=== PATIENT | female | born 2000 | race Caucasian/White ===

== ENCOUNTER 2021-03-24 11:08 | Inpatient (IN) ==
[2021-03-24] MEDS ORDERED: ONDANSETRON 4 MG TAB.RAPDIS PO PRN (11:20)
[2021-03-24] MEDS ORDERED: RINGER'S SOLUTION,LACTATED 1,000 ML IV ONE (11:20)
[2021-03-24] MEDS ORDERED: OXYTOCIN/0.9 % SODIUM CHLORIDE 30 UNITS/500 ML BAG IV ONE (11:20)
[2021-03-24] MEDS ORDERED: PENICILLIN G POTASSIUM 5 MILLIONUNT in DEXTROSE 5 % IN WATER 100 ML IV ONE ×2 (11:24)
[2021-03-24 11:46] LABS: Mean Cell Volume 87.4 fl (78-100); Mean Corpuscular Hemoglobin 27.3 pg (27-31); Mean Corpuscular Hgb Conc 31.3 g/dl (32-36); Mean Platelet Volume 11.2 fl (8-12.5); Platelet Count 244 K/mm3 (150-450); Red Blood Count 3.66 M/mm3 (4.2-5.4); White Blood Count 12.7 K/mm3 (4.0-10.5)
[2021-03-24 12:01] LABS: Albumin * 2.4 gm/dl (3.4-5.0); Anion Gap 16.2 mmol/L (6.8-13.8); BUN/Creatinine Ratio 13.8 (9.0-21.6); Bilirubin, Total 0.5 mg/dL (0.0-1.1); Ca. Corrected For Albumin 9.9 mg/dL (8.4-10.2); Calcium * 8.9 mg/dL (7.9-10.9); Carbon Dioxide 22.9 mmol/L (24-32.6); Potassium 4.1 mmol/L (3.4-4.6); Total Protein 6.7 gm/dL (6.2-8.2)
[2021-03-24 12:04] LABS: Random Urine Total Protein 39.2 mg/dL (0-12)
--- NOTE | 2021-03-24 12:31 | HP ---
Chief Complaint - Chief Complaint Date of Service: 03/24/21 Time of Service: 12:21 Chief Complaint: IOL for GHTN History of Present Illness: 20 yo at 30w0d admitted to L&D for IOL for GHTN. Pt. had elevated BPs (142/78, 130/91) at office appt today. Will obtain labs to rule out preeclampsia. Denies VANCE, visual changes, epigastric pain. This complicated by anemia, hypothyroidism, COVID-19 (10/26/20), and now GHTN. Rh positive Rubella immune GBS positive on 1st trimester urine. Medical History (Last Reviewed 03/24/21 @ 12:25 by Mike Ybarra DO) Anemia affecting (Acute) Onset Date: 01/07/21 Anxiety no tx History of palpitations anxiety Hemorrhoids History of COVID-19 Onset Date: ~10/26/20 Hypoglycemia Surgical History: Surgical History (Last Reviewed 03/24/21 @ 12:25 by Mike Ybarra DO) Arm fracture, left Onset Date: Unknown Broke in kindergarten, Surg repaired. Family History: Family History (Last Reviewed 03/24/21 @ 12:25 by Mike Ybarra DO) Father Diabetes Mother Crohn disease Hx of cholecystectomy Hypothyroidism Grandmother Diabetes Cervical cancer Grandfather CHF (congestive heart failure) Myocardial infarction Social History: (Last Reviewed 03/24/21 @ 12:25 by Mike Ybarra DO) Social History: adopted: No foster care: No Marital status: lives independently: Yes household members: spouse current occupational status: employed current occupation: [employer] Highest level of school completed/degree received: high school graduate Sexually Active: Yes Service: No Tobacco: Smoking Status: Never smoker Alcohol: alcohol intake: current alcohol intake frequency: holiday/special occasion details: none since +UPT Substance Use: substance use type: does not use Dietary Habits: caffeine: No Pets: pets and animals: cat(s) Exercise: Physical activity type: none frequency: does not exercise Review Of Systems (GEN) - Review of Systems Generalized/Overall Review: Present: No Symptoms Reported EENTM: Present: No Symptoms Reported Respiratory: Present: No Symptoms Reported Cardiac: Present: No Symptoms Reported Abdominal: Present: No Symptoms Reported Genitourinary: Present: No Symptoms Reported Musculoskeletal: Present: No Symptoms Reported Neurological: Present: No Symptoms Reported Skin: Present: No Symptoms Reported Endocrine: Present: No Symptoms Reported Immunizations: IMMUNIZATION HX Immunizations Up to Date Yes History of Influenza Vaccine More Information Required Hx Pneumococcal Vaccination More Information Required Allergies/Adverse Reactions: Allergies Allergy/AdvReac Type Severity Reaction Status Date / Time No Known Allergies Allergy Verified 03/24/21 10:51 Home Medications: HOME MEDICATIONS prenat.vits,rodriguez,[id number] 1 tab PO DAILY 08/20/20 [Last Taken Unknown] ferrous sulfate 325 mg (65 mg iron) tablet 325 mg PO DAILY #30 tab 01/07/21 [Last Taken Unknown] Exam - Exam Vital Signs: Vital Signs - Last Taken Temp 37.4 C 03/24/21 11:45 Pulse 113 H 03/24/21 11:45 Resp 18 03/24/21 11:45 BP 134/89 03/24/21 11:45 Pulse Ox 98 03/24/21 11:45 Constitutional: Present: Alert, Oriented x3, Cooperative, No distress ENT Exam: Present: hearing grossly normal Neck: Present: non-tender. Absent: thyromegaly Breasts: Present: Exam deferred Respiratory: Present: lungs clear, no respiratory distress Cardiovascular/Chest: Present: normal peripheral pulses, regular rate, rhythm Abdomen: Present: soft, nontender, no rebound tenderness, other - gravid /Rectal: Present: Other - Cervix 1/75/-1 Extremity: Present: no calf tenderness, lower extremity edema - 1+, DTR 3/4, no clonus Skin Exam: Present: normal color, warm/dry, no cyanosis Lymphatic: Present: no adenopathy Neurologic: Present: alert, normal mood/affect, oriented x 3 Appearance: Present: appropriate appearance, appropriate insight Eye contact: Present: cooperative, good eye contact Thoughts: Present: normal thought pattern, normal mood /affect Diagnostic Studies: Abnormal Lab Results 03/24/21 03/24/21 Range/Units 11:20 11:40 WBC 12.7 H (4.0-10.5) K/mm3 RBC 3.66 L (4.2-5.4) M/mm3 Hgb 10.0 L (12.5-16.0) gm/dL Hct 32.0 L (37.0-47.0) % MCHC 31.3 L (32-36) g/dl Immature Gran # (Auto) 0.05 H (0.000-0.0310) K/mm3 Neutrophils % 79.0 H (42-75.0) % Lymphocytes % 13.9 L (20-51) % Neutrophils # 10.0 H (1.3-6.0) K/mm3 U Random Total Protein 39.2 H (0-12) mg/dL U [place] Prot/Creat Ratio 278 H (0-199) mg/gm Laboratory Results WBC 12.7 K/mm3 (4.0-10.5) H 03/24/21 11:40 RBC 3.66 M/mm3 (4.2-5.4) L 03/24/21 11:40 Hgb 10.0 gm/dL (12.5-16.0) L 03/24/21 11:40 Hct 32.0 % (37.0-47.0) L 03/24/21 11:40 MCV 87.4 fl (78-100) 03/24/21 11:40 MCH 27.3 pg (27-31) 03/24/21 11:40 MCHC 31.3 g/dl (32-36) L 03/24/21 11:40 RDW 13.0 % (11.5-14.0) 03/24/21 11:40 Plt Count 244 K/mm3 (150-450) 03/24/21 11:40 MPV 11.2 fl (8-12.5) 03/24/21 11:40 Immature Gran % (Auto) 0.40 % (0.001-0.429) 03/24/21 11:40 Immature Gran # (Auto) 0.05 K/mm3 (0.000-0.0310) H 03/24/21 11:40 Neutrophils % 79.0 % (42-75.0) H 03/24/21 11:40 Lymphocytes % 13.9 % (20-51) L 03/24/21 11:40 Monocytes % 5.8 % (0.0-9) 03/24/21 11:40 Eosinophils % 0.7 % (0.0-3.0) 03/24/21 11:40 Basophils % 0.2 % (0.0-1.0) 03/24/21 11:40 Nucleated RBC % 0.0 k/mm3 (0-1) 03/24/21 11:40 Neutrophils # 10.0 K/mm3 (1.3-6.0) H 03/24/21 11:40 Lymphocytes # 1.76 k/mm3 (1.5-3.5) 03/24/21 11:40 Monocytes # 0.7 k/mm3 (0.0-1.0) 03/24/21 11:40 Eosinophils # 0.1 k/mm3 (0.0-0.7) 03/24/21 11:40 Absolute Basophils 0.0 k/mm3 (0.0-0.1) 03/24/21 11:40 Ur Random Creatinine 141.0 mg/dL (60-200) 03/24/21 11:20 U Random Total Protein 39.2 mg/dL (0-12) H 03/24/21 11:20 U Red[place]ick Prot/Creat Ratio 278 mg/gm (0-199) H 03/24/21 11:20 Assessment/Plan - Assessment/Plan (1) Gestational hypertension Assessment: Admit for pitocin induction of labor. Epidural PRN. IV PCN per GBS protocol. Monitor closely for s/s of severe features. Problem: Acute Qualifiers: Trimester: third trimester Qualified Code(s): O13.3 - Gestational [-induced] hypertension without significant proteinuria, third trimester (2) Group beta Strep positive Problem: Acute (3) Hypothyroidism Problem: Acute Qualifiers: Hypothyroidism type: unspecified Qualified Code(s): E03.9 - Hypothyroidism, unspecified (4) Anemia affecting Problem: Acute Qualifiers: Trimester: third trimester Qualified Code(s): O99.013 - Anemia complicating , third trimester
[2021-03-24] MEDS ORDERED: PENICILLIN G POTASSIUM 2.5 MILLIONUNT in DEXTROSE 5 % IN WATER 100 ML IV SCH ×2 (15:24)
[2021-03-24] MEDS: PENICILLIN G POTASSIUM 2.5 MILLIONUNT in DEXTROSE 5 % IN WATER 100 ML IV SCH ×4 (17:12→21:54)
--- NOTE | 2021-03-24 19:54 | PN ---
Progess Note - Interim Date: 03/24/21 Time: 19:52 Narrative: 03/24/21 19:53 Patient rating her contractions as 4 out of 10. Denies headache, visual changes, or epigastric pain. Vital signs stable. Pitocin at 10 mu/min. FHT: 135 baseline, reassuring contractions q 2-3 min Cervix: 2/80/-1, AROM-clear Impression: Intrauterine at 39 weeks induction of labor for gestational hypertension. GBS carrier status post 2 doses of IV penicillin. Plan: Continue present plan
[2021-03-24] MEDS ORDERED: BUPIVACAINE HCL/0.9 % NACL/PF 250 ML EP PRN ×2 (20:21→20:25)
[2021-03-24] MEDS ORDERED: ONDANSETRON HCL/PF 2 MG/ML VIAL IV PRN ×2 (20:21→20:25)
[2021-03-24] MEDS ORDERED: NALOXONE HCL 1 MG/1 ML SYRG IV PRN ×2 (20:21→20:25)
[2021-03-24] MEDS ORDERED: BUPIVACAINE HCL/PF 30 ML VIAL EP SCH (20:30)
[2021-03-24] MEDS ORDERED: fentaNYL CITRATE/PF 50 MCG/ML AMPUL IT SCH (20:30)
--- NOTE | 2021-03-24 20:30 | ANES ---
Anesthesia Pre Procedure Eval Vitals/Labs: Last Vital Signs Temp 37.4 C 03/24/21 11:45 Pulse 113 H 03/24/21 11:45 Resp 18 03/24/21 11:45 BP 134/89 03/24/21 11:45 Pulse Ox 98 03/24/21 11:45 HOME MEDICATIONS prenat.vits,rodriguez,[id number] 1 tab PO DAILY 08/20/20 [Last Taken Unknown] ferrous sulfate 325 mg (65 mg iron) tablet 325 mg PO DAILY #30 tab 01/07/21 [Last Taken Unknown] Allergies/Adverse Reactions: Allergies Allergy/AdvReac Type Severity Reaction Status Date / Time No Known Allergies Allergy Verified 03/24/21 10:51 - Planned Procedure Planned Procedure: gestational hypertension rule out pre eclampsia Medication List Reviewed:: Yes Allergies Verified: Yes Medical History (Last Reviewed 03/24/21 @ 12:25 by Mike Ybarra DO) Anemia affecting (Acute) Onset Date: 01/07/21 Anxiety no tx History of palpitations anxiety Hemorrhoids History of COVID-19 Onset Date: ~10/26/20 Hypoglycemia Surgical History (Last Reviewed 03/24/21 @ 12:25 by Mike Ybarra DO) Arm fracture, left Onset Date: Unknown Broke in kindergarten, Surg repaired. Family History (Last Reviewed 03/24/21 @ 12:25 by Mike Ybarra DO) Father Diabetes Mother Crohn disease Hx of cholecystectomy Hypothyroidism Grandmother Diabetes Cervical cancer Grandfather CHF (congestive heart failure) Myocardial infarction - Anesthesia Assessment and Plan ASA Class: PS, II Anesthesia Type Plan: Epidural
--- NOTE | 2021-03-24 20:49 | ANES ---
Anesthesia Procedure Note Procedure Note: ANESTHESIA PROCEDURE NOTE Date of Procedure: 03/24/2021. Time of procedure: 2034. Performed by: Maurice Benavidez CRNA Irradiated Fuel Handler: None. Preprocedure diagnosis: Active labor. Post procedure diagnosis: Same. Procedure: Insertion of labor epidural. Indications: The patient is a 20-year-old female in active labor requesting labor epidural for pain management. Findings: See below. Details of the procedure: The patient was placed in a sitting position. DuraPrep as well as Betadine swabs X3 was applied to the patient's back. Patient was then draped in a sterile fashion. Lidocaine 1% was infiltrated to the skin and subcutaneous tissues at the level of the L3-4 interspace. The epidural space was identified using a 18-gauge Tuohy needle with [id number] technique. Epidural catheter was inserted to a depth of 10 centimeters at skin. Negative test dose was elicited using 3 mL of 1.5% preservative-free lidocaine plus epinephrine 1 200,000. The epidural catheter was then taped and secured in place. A loading dose of 8 mL of 0.25% preservative-free bupivacaine was administered to the epidural catheter after negative aspiration for blood and CSF. EBL: Minimal. Fluids: N/A. Specimen: N/A. Post procedure condition: The patient tolerated the procedure well. No complications were noted. Thank you for this consultation. Maurice Benavidez CRNA
--- NOTE | 2021-03-24 20:49 | ANES ---
Post Anesthesia Assessment - Vital Signs Vitals: Last Vital Signs Temp 37.4 C 03/24/21 11:45 Pulse 113 H 03/24/21 11:45 Resp 18 03/24/21 11:45 BP 134/89 03/24/21 11:45 Pulse Ox 98 03/24/21 11:45 Airway Patency: Normal - Mental Status Level Of Consciousness: Awake - N/V Assessment Nausea/Vomiting Presence: None Dehydration:: No
--- NOTE | 2021-03-25 02:26 | OR ---
Operative Report - Dictated Report Narrative: Spontaneous vaginal delivery of vigorously crying viable female at 0151 on 03/25/2021 with Apgars 9 and 9, weighing 3213 g in OP presentation. Cord clamping delayed approximately 1 minute Placenta delivered complete, intact, with three vessel cord Estimated blood loss: 200 mL Anesthesia: Epidural Lacerations: Second-degree vaginal laceration (4 cm) repaired with 3-0 Vicryl Rapide. History for History for Definition: * The number of deliveries resulting in a live the patient experienced prior to current hospitalization * The previous delivery of live twins or any live multiple gestation is considered one live event. *If primagravida or nulliparous is documented select zero for the number of previous live births. Live Events: Live Events: 1
--- NOTE | 2021-03-25 02:26 | PN ---
Progess Note - Interim Date: 03/25/21 Time: 02: History for MU History for MU Definition: * The number of deliveries resulting in a live the patient experienced prior to current hospitalization * The previous delivery of live twins or any live multiple gestation is considered one live event. *If primagravida or nulliparous is documented select zero for the number of previous live births. Live Events: Live Events: 0
[2021-03-25] MEDS ORDERED: SENNOSIDES 8.6 MG TABLET PO PRN (02:28)
[2021-03-25] MEDS ORDERED: BENZOCAINE/MENTHOL 81 SPRAY CAN TP PRN (02:28)
[2021-03-25] MEDS ORDERED: GLYCERIN/WITCH HAZEL LEAF 40 APPL BOX TP PRN (02:28)
[2021-03-25] MEDS ORDERED: OXYTOCIN/0.9 % SODIUM CHLORIDE 30 UNITS/500 ML BAG IV ONE (02:28)
[2021-03-25] MEDS ORDERED: oxyCODONE HCL/ACETAMINOPHEN 1 TAB TABLET PO PRN (02:28)
[2021-03-25] MEDS ORDERED: IBUPROFEN 800 MG TABLET PO PRN ×2 (02:28)
[2021-03-25] MEDS ORDERED: HYDROCORTISONE 30 APPL TUBE TP PRN (02:28)
[2021-03-25] MEDS ORDERED: BISACODYL 10 MG SUPP.RECT RC PRN (02:28)
[2021-03-25] MEDS: PRENATAL VITS96/IRON FUM/FOLIC 1 TAB TABLET PO SCH (09:16)
[2021-03-25] MEDS: FERROUS SULFATE 325 MG TABLET PO SCH (09:17)
[2021-03-25] MEDS: DOCUSATE SODIUM 100 MG CAPSULE PO SCH ×2 (09:17→23:13)
--- NOTE | 2021-03-26 09:06 | PN ---
Subjective - Date and Time Seen Date: 03/26/21 Time: 09:05 Objective - Vitals Vitals: Last Vital Signs Temp 36.6 C 03/26/21 08:12 Pulse 68 03/26/21 08:12 Resp 18 03/26/21 08:12 BP 110/57 03/26/21 08:12 Pulse Ox 98 03/26/21 08:12 Patient denies complaints. Having some difficulty with breast-feeding. Lochia wnl abdomen - soft, nontender Uterus -firm, at umbilicus - 1 No calf tenderness Impression: day #1 - s/p spontaneous vaginal delivery. Gestational hypertension-resolved. Difficulty with breast-feeding. Plan: Continue routine care. consult. Cauti Physician Documentation - Urinary Catheter Management Urethral (Pyle) Date of Insertion: 03/24/21 Time of Insertion: 21:40 Date of Removal: 03/25/21 Time of Removal: 00:51 Assessment/Plan - Problems/Diagnosis (1) Gestational hypertension Problem: Acute Qualifiers: Trimester: third trimester Qualified Code(s): O13.3 - Gestational [-induced] hypertension without significant proteinuria, third trimester (2) Group beta Strep positive Problem: Acute (3) Hypothyroidism Problem: Acute Qualifiers: Hypothyroidism type: unspecified Qualified Code(s): E03.9 - Hypothyroidism, unspecified (4) Anemia affecting Problem: Acute Qualifiers: Trimester: third trimester Qualified Code(s): O99.013 - Anemia complicating , third trimester
[2021-03-26] MEDS: PRENATAL VITS96/IRON FUM/FOLIC 1 TAB TABLET PO SCH (09:46)
[2021-03-26] MEDS: DOCUSATE SODIUM 100 MG CAPSULE PO SCH ×2 (09:48→21:48)
[2021-03-26] MEDS: FERROUS SULFATE 325 MG TABLET PO SCH (09:48)
--- NOTE | 2021-03-27 08:42 | PN ---
Subjective - Date and Time Seen Date: 03/27/21 Time: 08:41 Objective - Vitals Vitals: Last Vital Signs Temp 36.5 C 03/27/21 01:32 Pulse 80 03/27/21 01:32 Resp 18 03/27/21 01:32 BP 92/50 03/27/21 01:32 Pulse Ox 99 03/27/21 01:32 Patient denies complaints. Breast-feeding Lochia wnl abdomen - soft, nontender Uterus -firm, at umbilicus - 2 No calf tenderness Impression: day #2 - s/p spontaneous vaginal delivery. Gestational hypertension-resolved Plan: Routine discharge instructions Cauti Physician Documentation - Urinary Catheter Management Urethral (Pyle) Date of Insertion: 03/24/21 Time of Insertion: 21:40 Date of Removal: 03/25/21 Time of Removal: 00:51 Assessment/Plan - Problems/Diagnosis (1) Normal vaginal delivery Problem: Acute (2) Gestational hypertension Problem: Resolved Qualifiers: Trimester: third trimester Qualified Code(s): O13.3 - Gestational [-induced] hypertension without significant proteinuria, third trimester (3) Group beta Strep positive Problem: Acute (4) Hypothyroidism Problem: Chronic Qualifiers: Hypothyroidism type: unspecified Qualified Code(s): E03.9 - Hypothyroidism, unspecified (5) Anemia affecting Problem: Chronic Qualifiers: Trimester: third trimester Qualified Code(s): O99.013 - Anemia complicating , third trimester
--- NOTE | 2021-03-27 08:46 | DS ---
OB Discharge Summary (1) Normal vaginal delivery Status: Acute (2) Gestational hypertension Status: Resolved Qualifiers: Trimester: third trimester Qualified Code(s): O13.3 - Gestational [-induced] hypertension without significant proteinuria, third trimester (3) Group beta Strep positive Status: Acute (4) Hypothyroidism Status: Chronic Qualifiers: Hypothyroidism type: unspecified Qualified Code(s): E03.9 - Hypothyroidism, unspecified (5) Anemia affecting Status: Chronic Qualifiers: Trimester: third trimester Qualified Code(s): O99.013 - Anemia complicating , third trimester Delivery Date: 03/25/21 Delivery Time: 01:51 :: 1 Para:: 1 Gestational weeks:: 39 Gestational days:: 1 Intrapartum Procedures: Spontaneous Vaginal Delivery, Anesthesia - Epidural, Other - IV antibiotics for GBS prophylaxis /OP Complications: No Complications Discharge Diagnosis: Term -Delivered - Discharge Information Date of Discharge: 03/27/21 Hospital Course: 20-year-old one now para one admitted at 39 weeks for induction of labor due to gestational hypertension. Hospital course was uncomplicated she received IV penicillin intrapartum for GBS prophylaxis. Blood pressures quickly normalized and she was discharged to home with routine discharge instructions and preeclampsia precautions. Discharge Location: Home Disposition: Home self-care Condition: Good Activity on Discharge:: Activity as tolerated, Pelvic Rest Discharge Diet: General/regular food Additional Patient Instructions (free text): Cecelia you have a scheduled follow up appointment with Dr. Ybarra on April 22 at 2:15 pm. Priti has an appointment on Monday March 29, 2021 at 8:[address] Conley. Prescriptions (Any new or edited meds): Ferrous Sulfate 325 mg PO DAILY #60 tab Ibuprofen [Motrin] 200 - 800 mg PO Q6H PRN #100 tab PRN Reason: Pain Complete Home Medications List: Complete Home Medication List: prenat.vits,rodriguez,[id number] 1 tab PO DAILY 08/20/20 ferrous sulfate 325 mg (65 mg iron) tablet 325 mg PO DAILY #30 tab 01/07/21 Ferrous Sulfate 325 mg PO DAILY #60 tab 03/25/21 Ibuprofen [Motrin] 200 - 800 mg PO Q6H PRN #100 tab 03/25/21 - Plan Discharge to:: Home Follow up in office in:: 3-4 weeks - [place] Information Weight (Grams): 3,213 Sex: Female Score 1 min: 9 Score 5 min: 9 Complications: Multiple Late Decels, Other - OP presentation at
[2021-03-27 08:48] VITALS: BP 110/57
[2021-03-27] MEDS: FERROUS SULFATE 325 MG TABLET PO SCH (09:53)
[2021-03-27] MEDS: DOCUSATE SODIUM 100 MG CAPSULE PO SCH (09:53)
[2021-03-27] MEDS: PRENATAL VITS96/IRON FUM/FOLIC 1 TAB TABLET PO SCH (09:53)
== END 2021-03-27 14:50 | disposition home or self-care (01) | DRG 807 ==
LOC: OB 11:08
PROVIDERS: ADMIT Obstetrics & Gynecology; ATTEND Obstetrics & Gynecology